=== PATIENT | female | born 1970 | race Caucasian/White ===

== ENCOUNTER 2024-01-27 05:53 | Inpatient (IN) ==
[2024-01-27] MEDS ORDERED: IOPAMIDOL 100 ML BOTTLE IV ONE (05:54)
[2024-01-27] MEDS: morphine 2 MG/ML VIAL IV PRN (06:33)
[2024-01-27] MEDS: 0.9 % SODIUM CHLORIDE 1,000 ML IV ONE ×2 (06:33→16:37)
[2024-01-27] MEDS: ONDANSETRON 4 MG/2 ML VIAL IV ONE (06:33)
[2024-01-27 06:52] LABS: Basophils # (Auto) 0.04 K/mcL (0.00-0.30); Basophils % (Auto) 0.2 % (0.0-2.0); Eosinophils # (Auto) 0.03 K/mcL (0.00-0.70); Eosinophils % (Auto) 0.2 % (0.0-7.0); Hematocrit 39.5 % (34.1-44.9); Hemoglobin 12.9 g/dL (11.2-15.7); Lymphocytes # (Auto) 1.71 K/mcL (1.50-4.80); Mean Cell Volume 89.8 fL (80.0-100.0); Mean Corpuscular HGB Conc 32.7 g/dL (31.0-36.0); Mean Platelet Volume 9.7 fL (8.8-12.5); Monocytes # (Auto) 0.91 K/mcL (0.10-0.90); Monocytes % (Auto) 5.3 % (1.0-12.0); Platelet Count 290 K/mcL (140-440); Red Cell Distribution Width 12.6 % (11.5-14.5); WBC 17.1 K/mcL (4.5-11.0)
[2024-01-27 07:03] LABS: ALT/SGPT 28 U/L (<40); AST/SGOT 25 U/L (<32); Albumin 4.1 gm/dL (3.2-5.2); Albumin/Globulin Ratio 1.3 (1.0-2.3); Alkaline Phosphatase 73 U/L (39-117); Bilirubin,Total 0.4 mg/dL (0.1-1.0); Blood Urea Nitrogen 11 mg/dL (6-20); Calcium 9.1 mg/dL (8.6-10.4); Carbon Dioxide 25 mmol/L (22-30); Chloride 100 mmol/L (96-108); Globulin 3.1 gm/dL (2.2-3.7); Glomerular Filtration Rate 97; Glucose 113 mg/dL (70-105); Potassium 3.8 mmol/L (3.3-5.1); Sodium 138 mmol/L (133-145)
[2024-01-27 09:22] LABS: Appearance,Urine Clear (Clear); Bilirubin,Urine Negative (Negative); Color,Urine Yellow; Culture Indicated,Urine No; Glucose,Urine (UA) Negative (Negative); Ketones,Urine Negative (Negative); Leukocyte Esterase,Urine Negative /uL (Negative); Nitrate,Urine Negative (Negative); PH,Urine 7.5 (5.0-9.0); Protein,Urine Negative (Negative); Urine Blood Trace-intact ery/mcL (Negative); Urine RBC 0 /hpf (0-3); Urine Squamous Epithelial Cell 1 /hpf (0-4); Urine WBC 0 /hpf (0-4); Urobilinogen,Urine Normal
[2024-01-27] MEDS: metroNIDAZOLE 500 MG/100 ML BAG IV ONE (13:13)
[2024-01-27] MEDS: VANCOMYCIN ORAL SOL 1,000 MG/10 ML BOTTLE PO SCH (13:16)
[2024-01-27] MEDS: VANCOMYCIN 250 MG CAPSULE PO ONE (13:44)
[2024-01-27] MEDS: VANCOMYCIN 125 MG CAPSULE PO ONE (13:56)
[2024-01-27] MEDS ORDERED: ONDANSETRON 4 MG/2 ML VIAL IV PRN (16:19)
[2024-01-27] MEDS ORDERED: VANCOMYCIN 250 MG CAPSULE PO SCH (17:00)
[2024-01-27] MEDS: VANCOMYCIN 125 MG CAPSULE PO SCH (17:22)
[2024-01-27] MEDS: 0.9 % SODIUM CHLORIDE 1,000 ML IV SCH (17:44)
[2024-01-27] MEDS: metroNIDAZOLE 500 MG/100 ML BAG IV SCH (21:03)
[2024-01-27] MEDS: 0.9 % SODIUM CHLORIDE 10 ML SYRINGE IV SCH (21:04)
[2024-01-27] MEDS: ACETAMINOPHEN 325 MG TABLET PO PRN (22:50)
[2024-01-28 05:55] LABS: Basophils # (Auto) 0.04 K/mcL (0.00-0.30); Basophils % (Auto) 0.3 % (0.0-2.0); Eosinophils # (Auto) 0.05 K/mcL (0.00-0.70); Eosinophils % (Auto) 0.4 % (0.0-7.0); Hematocrit 36.8 % (34.1-44.9); Hemoglobin 11.9 g/dL (11.2-15.7); Lymphocytes # (Auto) 1.78 K/mcL (1.50-4.80); Lymphocytes % (Auto) 13.2 % (15.5-49.0); Mean Cell Volume 91.5 fL (80.0-100.0); Mean Corpuscular HGB Conc 32.3 g/dL (31.0-36.0); Mean Platelet Volume 9.8 fL (8.8-12.5); Monocytes # (Auto) 0.73 K/mcL (0.10-0.90); Monocytes % (Auto) 5.4 % (1.0-12.0); Neutrophils % (Auto) 80.5 % (38.0-78.0); Platelet Count 242 K/mcL (140-440); RBC 4.02 M/mcL (3.59-5.38); Red Cell Distribution Width 12.8 % (11.5-14.5); WBC 13.5 K/mcL (4.5-11.0)
[2024-01-28 06:08] LABS: ALT/SGPT 23 U/L (<40); AST/SGOT 22 U/L (<32); Albumin 3.7 gm/dL (3.2-5.2); Albumin/Globulin Ratio 1.4 (1.0-2.3); Alkaline Phosphatase 63 U/L (39-117); Bilirubin,Direct < 0.2 mg/dL (0-0.3); Bilirubin,Total 0.4 mg/dL (0.1-1.0); Blood Urea Nitrogen 7 mg/dL (6-20); Calcium 8.5 mg/dL (8.6-10.4); Carbon Dioxide 24 mmol/L (22-30); Chloride 105 mmol/L (96-108); Globulin 2.7 gm/dL (2.2-3.7); Glomerular Filtration Rate 97; Glucose 107 mg/dL (70-105); Lactate Dehydrogenase 176 U/L (135-225); Phosphorous 2.4 mg/dL (2.5-4.5); Potassium 3.8 mmol/L (3.3-5.1); Sodium 138 mmol/L (133-145); Triglycerides 119 mg/dL (<150); Uric Acid 3.7 mg/dL (2.5-8.0)
[2024-01-28] MEDS: ENOXAPARIN 40 MG/0.4 ML SYRINGE SQ SCH (08:58)
[2024-01-28] MEDS: SERTRALINE 50 MG TABLET PO SCH (10:03)
[2024-01-29 07:07] LABS: Basophils # (Auto) 0.04 K/mcL (0.00-0.30); Basophils % (Auto) 0.6 % (0.0-2.0); Eosinophils % (Auto) 1.5 % (0.0-7.0); Hematocrit 36.5 % (34.1-44.9); Hemoglobin 11.7 g/dL (11.2-15.7); Lymphocytes % (Auto) 29.4 % (15.5-49.0); Mean Cell Volume 92.2 fL (80.0-100.0); Mean Corpuscular HGB Conc 32.1 g/dL (31.0-36.0); Mean Platelet Volume 9.6 fL (8.8-12.5); Monocytes # (Auto) 0.48 K/mcL (0.10-0.90); Neutrophils % (Auto) 61.4 % (38.0-78.0); Platelet Count 235 K/mcL (140-440); RBC 3.96 M/mcL (3.59-5.38); Red Cell Distribution Width 13.1 % (11.5-14.5); WBC 6.8 K/mcL (4.5-11.0)
[2024-01-29 07:24] LABS: ALT/SGPT 19 U/L (<40); AST/SGOT 21 U/L (<32); Albumin 3.8 gm/dL (3.2-5.2); Albumin/Globulin Ratio 1.4 (1.0-2.3); Alkaline Phosphatase 62 U/L (39-117); Bilirubin,Direct < 0.2 mg/dL (0-0.3); Bilirubin,Total 0.3 mg/dL (0.1-1.0); Blood Urea Nitrogen 6 mg/dL (6-20); Calcium 8.8 mg/dL (8.6-10.4); Carbon Dioxide 24 mmol/L (22-30); Chloride 106 mmol/L (96-108); Globulin 2.8 gm/dL (2.2-3.7); Glomerular Filtration Rate 102; Glucose 102 mg/dL (70-105); Lactate Dehydrogenase 163 U/L (135-225); Phosphorous 2.9 mg/dL (2.5-4.5); Potassium 3.6 mmol/L (3.3-5.1); Sodium 139 mmol/L (133-145); Triglycerides 129 mg/dL (<150); Uric Acid 3.9 mg/dL (2.5-8.0)
[2024-01-30 06:51] LABS: Basophils # (Auto) 0.03 K/mcL (0.00-0.30); Basophils % (Auto) 0.5 % (0.0-2.0); Eosinophils % (Auto) 1.7 % (0.0-7.0); Hematocrit 36.4 % (34.1-44.9); Hemoglobin 11.9 g/dL (11.2-15.7); Lymphocytes # (Auto) 2.03 K/mcL (1.50-4.80); Lymphocytes % (Auto) 34.7 % (15.5-49.0); Mean Cell Volume 90.8 fL (80.0-100.0); Mean Corpuscular HGB Conc 32.7 g/dL (31.0-36.0); Mean Platelet Volume 9.9 fL (8.8-12.5); Monocytes % (Auto) 6.8 % (1.0-12.0); Neutrophils % (Auto) 56.1 % (38.0-78.0); Platelet Count 230 K/mcL (140-440); RBC 4.01 M/mcL (3.59-5.38); Red Cell Distribution Width 12.9 % (11.5-14.5); WBC 5.9 K/mcL (4.5-11.0)
[2024-01-30 07:20] LABS: ALT/SGPT 17 U/L (<40); AST/SGOT 21 U/L (<32); Albumin 3.8 gm/dL (3.2-5.2); Albumin/Globulin Ratio 1.3 (1.0-2.3); Alkaline Phosphatase 60 U/L (39-117); Bilirubin,Direct < 0.2 mg/dL (0-0.3); Bilirubin,Total 0.3 mg/dL (0.1-1.0); Blood Urea Nitrogen 6 mg/dL (6-20); Calcium 8.9 mg/dL (8.6-10.4); Carbon Dioxide 24 mmol/L (22-30); Chloride 104 mmol/L (96-108); Globulin 2.9 gm/dL (2.2-3.7); Glomerular Filtration Rate 102; Glucose 94 mg/dL (70-105); Lactate Dehydrogenase 164 U/L (135-225); Phosphorous 3.8 mg/dL (2.5-4.5); Potassium 3.8 mmol/L (3.3-5.1); Sodium 139 mmol/L (133-145); Triglycerides 145 mg/dL (<150); Uric Acid 4.4 mg/dL (2.5-8.0)
[2024-01-31 09:01] LABS: Blood Urea Nitrogen 8 mg/dL (6-20); Calcium 8.9 mg/dL (8.6-10.4); Carbon Dioxide 24 mmol/L (22-30); Chloride 105 mmol/L (96-108); Glomerular Filtration Rate 102; Glucose 93 mg/dL (70-105); Potassium 4.1 mmol/L (3.3-5.1); Sodium 140 mmol/L (133-145)
[2024-01-31] MEDS: metroNIDAZOLE 500 MG TABLET PO SCH (13:35)
== END 2024-01-31 13:55 | disposition home or self-care (01) | DRG 872 ==
LOC: ED 05:53 → MEDSUR 16:10
PROVIDERS: ADMIT Internal Medicine; ATTEND Internal Medicine